=== PATIENT | male | born 1985 | race Caucasian/White ===

== ENCOUNTER 2018-01-07 19:05 | Emergency (ER) | payer OTHER ==
[~2018-01-07] VITALS: Ht 182.9 cm; Wt 95.5 kg
[2018-01-07] MEDS: AZITHROMYCIN 250 MG TABLET PO ONE (22:01)
[2018-01-07] MEDS: CefTRIAXone SODIUM 1 GM/VIAL IM ONE (22:02)
[2018-01-07] MEDS: LIDOCAINE HCL/PF 1% 2 ML VIAL IM ONE (22:02)
[2018-01-07 22:13] VITALS: BP 138/85
== END 2018-01-07 22:30 | disposition home or self-care (01) ==
LOC: EMS 19:06
DX: Z20.2 Contact with and (suspected) exposure to infections with a predominantly sexual mode of transmission (principal)
CPT/HCPCS: 96372; 99283; J0696; J3490